=== PATIENT | female | born 1975 | race African-American/Black ===

== ENCOUNTER 2017-03-15 08:29 | Day surgery (SDC) | payer BC ==
[~2017-03-15] VITALS: Ht 157.5 cm; Wt 118.0 kg
[~2017-03-15 08:29] MED LIST: FLEXERIL10 MG PO; NAPROSYN500 MG PO
[2017-03-15 08:45] VITALS: BP 146/85
[2017-03-15 13:07] VITALS: BP 118/64
[2017-03-15 14:05] VITALS: BP 109/59
[2017-03-15 16:09] VITALS: BP 100/59
[2017-03-15 16:53] VITALS: BP 147/82
== END 2017-03-15 16:50 | disposition home or self-care (01) ==
LOC: SDC
PROC: 0UDB8ZX Extraction of Endometrium, Via Natural or Artificial Opening Endoscopic, Diagnostic (ICD-10-PCS; principal; 2017-03-15)
DX: N92.0 Excessive and frequent menstruation with regular cycle (principal); E66.9 Obesity, unspecified; Z68.42 Body mass index [BMI] 45.0-49.9, adult; Z83.42 Family history of familial hypercholesterolemia; Z82.49 Family history of ischemic heart disease and other diseases of the circulatory system; Z80.49 Family history of malignant neoplasm of other genital organs
CPT/HCPCS: 84702; 88305; J1170; J2250; J2405; J2765; J3010

== ENCOUNTER 2017-05-01 18:25 | Emergency (ER) | payer BC ==
[~2017-05-01] VITALS: Ht 157.5 cm; Wt 116.4 kg
[2017-05-01] MEDS ORDERED: NAPROXEN500 MG PO (20:14)
[2017-05-01 21:11] VITALS: BP 147/84
== END 2017-05-01 21:51 | disposition home or self-care (01) ==
LOC: EME 18:25
DX: M25.561 Pain in right knee (principal)
CPT/HCPCS: 73564; 99281; 99284; J1885